=== PATIENT | female | born 1980 | race African-American/Black ===

== ENCOUNTER 2021-08-06 07:59 | Emergency (ER) | payer MEDICAID, OTHER ==
[~2021-08-06] VITALS: Ht 170.2 cm; Wt 115.2 kg
[2021-08-06 08:01] VITALS: BP 144/76
--- NOTE | 2021-08-06 08:06 | NUR ---
PT AMBULATED TO BED 03.
--- NOTE | 2021-08-06 08:12 | NUR ---
41 Y/O FEMALE C/O N/V/D AND ABD PAIN 07/18 DESCRIBES CRAMPING GENERALIZED NON-RADIATING X1DAY. PT STATES +CHILLS, +PRODUCTIVE COUGH, DENIES FEVER. ABDOMEN IS SOFT, ROUND, NON-TENDER TO PALPATION, BOWEL SOUNDS PRESENT X4, LAST BM 08/06/21. DENIES PMH NKA
--- NOTE | 2021-08-06 08:31 | NUR ---
DR. LOPEZ AT PT BEDSIDE FOR FURTHER EVALUATION.
[2021-08-06] MEDS ORDERED: DICYCLOMINE HCL LIQUID 10 MG/5 ML UDC PO ONE (08:35)
[2021-08-06] MEDS ORDERED: ONDANSETRON 4 MG ODT PO ONE (08:35)
--- NOTE | 2021-08-06 08:58 | NUR ---
BREAKDOWN MAN AT PT BEDSIDE.
--- NOTE | 2021-08-06 09:04 | NUR ---
[employer] MECH[employer]IC AT PT BEDSIDE.
--- NOTE | 2021-08-06 09:07 | NUR ---
COLLECTED COVID JONI SWAB, AND INFL A&B. 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
[2021-08-06 09:13] LABS: BASOPHILS % (AUTO) 0.2 % (0.0-2.0); HEMATOCRIT 35.8 % (36-48); LYMPHOCYTES # (AUTO) 0.5 K/uL (2.5-16.5); LYMPHOCYTES % (AUTO) 2.9 % (20.5-51.1); MEAN CORPUSCULAR HEMOGLOBIN 33 pg (27-31); MEAN CORPUSCULAR HGB CONC 33 g/dL (33-37); MEAN CORPUSCULAR VOLUME 97.6 fL (80-94); MONOCYTES # (AUTO) 0.5 K/uL (0.8-1.0); MONOCYTES % (AUTO) 2.6 % (1.7-9.3); NEUTROPHILS # (AUTO) 16.3 K/uL (1.8-7.7); NEUTROPHILS % (AUTO) 94.3 % (42.2-75.2); PLATELET COUNT (AUTO) 407 K/uL (140-450); RED BLOOD CELL COUNT(AUTO) 3.67 MIL/uL (4.20-5.40); RED CELL DISTRIBUTION WIDTH 12.3 % (11.6-13.7); WHITE BLOOD COUNT (AUTO) 17.3 K/uL (4.8-10.8)
[2021-08-06 09:30] LABS: ALBUMIN 3.6 g/dL (3.4-5.0); ANION GAP 11.2 (8-16); CARBON DIOXIDE 24.7 mmol/L (21-32); CREATININE 0.8 mg/dL (0.6-1.3); POTASSIUM 3.9 mmol/L (3.5-5.1); TOTAL BILIRUBIN 0.3 mg/dL (0.0-1.0)
--- NOTE | 2021-08-06 10:11 | NUR ---
PT RESTING, EYES CLOSED VISIBLE EQUAL RISE AND FALL OF CHEST, VSS, WILL CONTINUE TO MONITOR.
[2021-08-06] MEDS ORDERED: ONDA-188 PO (11:08)
[2021-08-06] MEDS ORDERED: PROCHLORPERAZINE 5 MG TAB PO ONE (11:15)
[2021-08-06 11:40] VITALS: BP 124/67
== END 2021-08-06 11:40 | disposition home or self-care (01) ==
LOC: MED 07:59
DX: B34.9 Viral infection, unspecified (principal); Z20.822 Contact with and (suspected) exposure to COVID-19; R05.9 Cough, unspecified; R11.2 Nausea with vomiting, unspecified; R03.0 Elevated blood-pressure reading, without diagnosis of hypertension; Z79.899 Other long term (current) drug therapy
CPT/HCPCS: 36415; 71045; 80053; 83690; 84702; 85025; 87426; 87804; 93005; 99285; Q0092; Q0162; Q0164